=== PATIENT | male | born 2000 | race Caucasian/White ===

== ENCOUNTER 2020-12-09 15:47 | Emergency (ER) | payer MEDICAID ==
[~2020-12-09] VITALS: Ht 175 cm; Wt 67.0 kg
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
[2020-12-09] MEDS ORDERED: ACHD5005 PO (16:47)
[2020-12-09] MEDS ORDERED: CEPH500T PO (16:47)
--- NOTE | 2020-12-09 17:25 | Diagnostic Imaging Report ---
INDICATION: Knee pain. EXAMINATION: Right knee at 4:48 p.m. Three views were obtained. COMPARISON: There is no prior study available for comparison. There is a well-circumscribed lucency extending through the superolateral aspect of the patella. I suspect that this is a developmental variant, the so-called bipartite patella and not a fracture. However if the patient has point tenderness in this area, then either CT or preferably MRI would be recommended for further evaluation. No other fracture or acute bony abnormality is noted. The knee joint is well maintained. The soft tissues are generally unremarkable. There may be a small joint effusion present. IMPRESSION: 1. 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 Recommendations as above. 2. There is no acute bony abnormality noted otherwise. Dictated by: Dictated on workstation # [id number]
[2020-12-09 17:52] VITALS: BP 126/74
== END 2020-12-09 17:56 | disposition home or self-care (01) ==
LOC: ER 15:52
DX: S82.001A Unspecified fracture of right patella, initial encounter for closed fracture (principal); R59.1 Generalized enlarged lymph nodes; V86.59XA Driver of other special all-terrain or other off-road motor vehicle injured in nontraffic accident, initial encounter
CPT/HCPCS: 73562; 99283; L1830

== ENCOUNTER → 2020-12-20 | Outpatient (CLI) | payer MEDICAID ==
[~2020-12-20] MED LIST: ACHD5005 PO; CEPH500T PO
--- NOTE | 2020-12-20 15:48 | Diagnostic Imaging Report ---
EXAMINATION: Magnetic resonance imaging of the right knee without intravenous contrast DATE: December 20, 2020. COMPARISON: Right knee radiographs December 09, 2020. INDICATION: 20-year-old male, right knee injury. Right knee pain. TECHNIQUE: Multiplanar, multisequence non contrast enhanced MR imaging was accomplished. FINDINGS: MENISCI: The medial meniscus is intact. The lateral meniscus is intact. LIGAMENTS AND TENDONS: The anterior and posterior cruciate ligaments are intact. The medial collateral ligament is intact. The iliotibial band, mid third lateral capsular ligament, fibular collateral ligament, biceps femoris tendon and conjoined tendon are intact. The quadriceps tendon and patella ligament are intact. JOINT: The articular cartilage surfaces are intact. There is no knee joint effusion, prominent synovitis, or intra-articular body. 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 There is no acute fracture, bone contusion, or evidence of osteonecrosis. BURSAE AND SOFT TISSUES: There is no Bolanos's cyst. Additional soft tissue assessment is unremarkable. IMPRESSION: 1. Intact menisci and cruciate ligaments. Additional ligaments and tendons are intact. 2. Normal variant bipartite patella. No acute fracture, bone contusion, or other notable bone marrow signal abnormality. 3. Intact articular cartilage. No knee joint effusion. Dictated by: Dictated on workstation # [id number]
== END ==
LOC: RAD 13:15
PROVIDERS: ATTEND Nurse Practitioner Family
DX: S89.91XA Unspecified injury of right lower leg, initial encounter (principal); X58.XXXA Exposure to other specified factors, initial encounter
CPT/HCPCS: 73721